=== PATIENT | female | born 2000 | race Caucasian/White ===

== ENCOUNTER 2024-05-11 14:44 | Inpatient (IN) | payer OTHER, SELFPAY ==
[2024-05-11] VITALS (29 sets, daily range): BP systolic 92–114; BP diastolic 42–93; PULSE 97–140; RESP 18–124; TEMP 37.3–39.6; O2SAT 76–97; BMI 20.9; BMI 21.2
--- NOTE | 2024-05-11 15:01 | EKG12_ITS ---
Test Reason : SOB Blood Pressure : */* mmHG Vent. Rate : 132 BPM Atrial Rate : 132 BPM P-R Int : 124 ms QRS Dur : 72 ms QT Int : 282 ms P-R-T Axes : 58 109 -11 degrees QTcB Int : 417 ms Sinus tachycardia Rightward axis T wave abnormality, consider inferior ischemia Abnormal ECG Confirmed by OCTAVIO BRUNSON, SORAYA ([id number]), graphics editor CHRISTINE BUSH ([id number]) on 05/12/2024 8:48:04 AM Referred By: Inna Taylor Confirmed By: SORAYA CUNNINGHAM MD
--- NOTE | 2024-05-11 15:13 | EX.ED.DYSGE1 ---
HPI <MARTÍNEZ Ruiz - Last Filed: 05/11/24 15:57> History of Present Illness Chief Complaint: Shortness of Breath Narrative Narrative: Patient is a 23-year-old female with no significant ankle history, last menstrual cycle was 1 week ago. Patient over the last 8 days has had a cough, fever and chills. Patient did see a family doctor who treated her for more of a viral-like illness. Over the last 2 to 3 days, the patient has been having worsening fatigue, fever has been more increased, patient is more more short of breath. Today, the patient was at a family office, then sent in by secondary to hypoxia. Patient denies any sick contacts. Pay states he has a harsh cough, and feels short of breath. PFSH <MARTÍNEZ Ruiz - Last Filed: 05/11/24 15:57> [facility] Medical History no medical history Home Medications ?Medication ?Instructions ?Recorded ?Last Taken ?Type NK 05/11/24 Unknown History Allergy/AdvReac Type Severity Reaction Status Date / Time No Known Allergies Allergy Verified 05/11/24 14:51 Family History no significant family his Surgical History no surgical history Social History Smoking Status: Never smoker ROS <MARTÍNEZ Ruiz - Last Filed: 05/11/24 15:57> ROS ED ROS Narrative Constitutional: Negative for weight loss. Positive for fever, chills, weakness. Eyes: Negative for vision loss, vision change, double vision ENT: Negative for any sore throat, ear pain, congestion Cardiovascular: Negative for any chest pain, tightness, palpitations Respiratory: Positive for any cough, sputum production, hemoptysis, dyspnea, dyspnea on exertion, orthopnea Gastrointestinal: Negative for any abdominal pain, nausea, vomiting, diarrhea, constipation, blood in stool, blood in vomit : Negative for any urinary frequency, dysuria, retention, blood in urine Muscle skeletal: Negative for any neck pain, back pain. Positive for myalgias Neurological: Negative for any headache, syncope, dizziness Skin: Negative for any rashes, itching, abrasions, lacerations Psychiatric: Negative for any depression, anxiety, stress, suicidal ideation, homicidal ideation Hematologic: Negative for any excessive bruising, easy bleeding EXAM <MARTÍNEZ Ruiz - Last Filed: 05/11/24 15:57> Physical Exam Narrative Exam Narrative: Vital signs reviewed. Patient on my initial evaluation did appear to be ill-appearing. Patient's heart rate was 135, temperature was 103.2, patient was 93% on 5 L nasal cannula. HEET: Head normocephalic atraumatic, TMs clear bilaterally. Posterior pharynx is clear, dry mucous membranes. Nares clear bilaterally. Neck: Supple with no lymphadenopathy or tenderness. No signs of meningismus. Cardiac: Tachycardic rate no murmurs gallops or rubs, equal peripheral pulses bilaterally. Respiratory: Lung sounds diminished at the bases. No chest tenderness. Abdomen: Soft, nontender, nondistended. No abdominal bruit or pulsatile masses. No hepatosplenomegaly Extremities: No peripheral edema, no signs of gross trauma or deformity. Active full range of motion of all extremities. Neuro: Cranial nerves II through XII intact, no focal neurological deficits. Skin: Clean dry and intact with no rash, purpura, petechiae, vesicles or pustules. Skin is warm to the touch Backs/flank: No CVA tenderness, no midline spinal tenderness, no deformity. Psych: Normal mood and affect. No SI, HI or acute psychosis. Const Vital Signs: 05/11/24 14:45 05/11/24 14:45 05/11/24 14:48 Temperature 103.2 F H 103.2 F H Temperature Source Oral Oral Pulse Rate 140 H 135 H Respiratory Rate 22 H 27 H Respiratory Effort Short of Breath Accessory Muscle Use Respiratory Depth Shallow Respiratory Pattern Tachypnea Blood Pressure 107/82 H 107/82 H Blood Pressure Mean 90 90 Pulse Ox 92 76 Oxygen Delivery Method Room Air Nasal Cannula Room Air Oxygen Flow Rate (L/min) 6 05/11/24 14:53 05/11/24 15:06 Temperature Temperature Source Pulse Rate Respiratory Rate Respiratory Effort Respiratory Depth Respiratory Pattern Blood Pressure Blood Pressure Mean Pulse Ox 93 93 Oxygen Delivery Method Nasal Cannula Nasal Cannula Oxygen Flow Rate (L/min) 6 6 <Dr. Jax Orr MD - Last Filed: 05/11/24 15:57> Physical Exam Const Vital Signs: 05/11/24 14:45 05/11/24 14:45 05/11/24 14:48 Temperature 103.2 F H 103.2 F H Temperature Source Oral Oral Pulse Rate 140 H 135 H Respiratory Rate 22 H 27 H Respiratory Effort Short of Breath Accessory Muscle Use Respiratory Depth Shallow Respiratory Pattern Tachypnea Blood Pressure 107/82 H 107/82 H Blood Pressure Mean 90 90 Pulse Ox 92 76 Oxygen Delivery Method Room Air Nasal Cannula Room Air Oxygen Flow Rate (L/min) 6 05/11/24 14:53 05/11/24 15:06 Temperature Temperature Source Pulse Rate Respiratory Rate Respiratory Effort Respiratory Depth Respiratory Pattern Blood Pressure Blood Pressure Mean Pulse Ox 93 93 Oxygen Delivery Method Nasal Cannula Nasal Cannula Oxygen Flow Rate (L/min) 6 6 [facility] <MARTÍNEZ Ruiz - Last Filed: 05/11/24 15:57> [facility] Lab Data Labs: Laboratory Results - last 24 hr 05/11/24 05/11/24 14:30 15:05 WBC 10.6 RBC 4.49 Hgb 12.9 Hct 38.6 MCV 86.0 MCH 28.7 MCHC 33.4 RDW Std Deviation 42.6 RDW Coeff of Nabila 13.5 Plt Count 240 MPV 10.4 Immature Gran % (Auto) 0.800 Neut % (Auto) 79.5 H Lymph % (Auto) 12.6 L Harris % (Auto) 6.8 Eos % (Auto) 0.0 Baso % (Auto) 0.3 Absolute Neuts (auto) 8.4 H Absolute Lymphs (auto) 1.33 Nucleated RBC % 0 PT 13.5 INR 1.0 APTT 36.1 Sodium 133 L Potassium 3.8 Chloride 100 Carbon Dioxide 25.0 Anion Gap 8 BUN 3 L Creatinine 0.75 Estim Creat Clear Calc 113.70 Est GFR (MDRD) Af Amer 125 Est GFR (MDRD) Non-Af 103 BUN/Creatinine Ratio 4.0 L Glucose 111 H Lactic Acid 1.4 Calcium 9.0 Total Bilirubin 0.50 AST 36 ALT 19 Alkaline Phosphatase 68 Total Protein 7.9 Albumin 3.1 L Globulin 4.8 H Albumin/Globulin Ratio 0.6 L EKG Sinus tachycardia: Attestation: I personally reviewed and interpreted this EKG as follows: Comments: Sinus tachycardia with a rate of 132 bpm, AK interval 124 ms, QRS duration 72 ms, no acute ST elevation, no acute infarct noted. Treatment and Re-Evaluation :: Differential diagnosis includes however is not limited to: Community-acquired pneumonia, COVID-19, influenza, RSV, PE, other respiratory virus Patient on my initial evaluation did appear ill-appearing. Patient will receive a full septic workup. Patient was tachycardic, tachypneic, febrile. Patient's pulse oxygenation dropped to 88% when I switched her from different nasal cannula. She is on currently 5 L. Patient received a 1 view chest x-ray, breathing treatments, laboratory values including 2 sets of blood cultures. Patient will receive a respiratory viral swab for COVID-19 influenza RSV. After my initial evaluation, I do believe the patient will need admitted to the hospital. 2 L of normal saline will be ordered. IV Toradol, oral Tylenol will be given. All radiologic examinations were read, reviewed by the emergency department attending. From these reads, a plan of care will be put in place. Will need to be reevaluated after breathing treatments. <Dr. Jax Orr MD - Last Filed: 05/11/24 15:57> [facility] Narrative Medical decision making narrative: I have personally performed a face to face assessment of the patient and have reviewed the AMISHA Note. I performed a substantive portion of the visit including all aspects of the following. My heredia findings include: History is [23-year-old female URI symptoms for a week. Progressively increasing shortness of breath. Previously seen in urgent care last week. Had a negative COVID and flu test. Was treated with Tamiflu for influenza and knows she had a negative test. Had no chest x-ray done. She has progressively felt worse. Denies chest pain or hemoptysis. No history of DVT or PE. No leg pain or swelling.] Exam is [23-year-old female vital signs show a fever of 103.2 and a heart rate of 140. H EENT exam pupils round reactive light. Dry mucous members. Neck nontender. No JVD. No lymphadenopathy. Lungs rhonchi left base. Decreased breath sounds left base. Tachycardic and tachypneic. Heart tachycardia 140 no murmur. Chest wall ribs nontender. Abdomen soft nontender. Moving all 4 extremities. Nontender no edema. Neurologically she is awake and alert no focal motor deficits. Skin no rashes. Back nontender.] Medical Decision Making [23-year-old female left lower lobe pneumonia. Started on Rocephin and Zithromax. Septic workup. Patient be admitted to PCU to the hospitalist. Repeat exam at 3:55 PM. She started to show some improvement. She was improved with the aerosols also. I discussed test results with both her and her . They are comfortable with the plan.] Other additions or changes: [None] History & Record Review Discussion w/independent historian: Patient and Significant other Lab Data Attestation: I reviewed the patient's lab results. Lab results narrative: CBC shows white count of 10. H&H 12.9 and 38. Platelets 240. Electrolytes show sodium 133. Gap 8. BUN of 3 creatinine 0.75. Glucose 111. Liver enzymes normal. Lactic acid normal at 1.4. Chest x-ray shows a left lower lobe pneumonia. Labs: Laboratory Results - last 24 hr 05/11/24 05/11/24 14:30 15:05 WBC 10.6 RBC 4.49 Hgb 12.9 Hct 38.6 MCV 86.0 MCH 28.7 MCHC 33.4 RDW Std Deviation 42.6 RDW Coeff of Nabila 13.5 Plt Count 240 MPV 10.4 Immature Gran % (Auto) 0.800 Neut % (Auto) 79.5 H Lymph % (Auto) 12.6 L Harris % (Auto) 6.8 Eos % (Auto) 0.0 Baso % (Auto) 0.3 Absolute Neuts (auto) 8.4 H Absolute Lymphs (auto) 1.33 Nucleated RBC % 0 PT 13.5 INR 1.0 APTT 36.1 Sodium 133 L Potassium 3.8 Chloride 100 Carbon Dioxide 25.0 Anion Gap 8 BUN 3 L Creatinine 0.75 Estim Creat Clear Calc 113.70 Est GFR (MDRD) Af Amer 125 Est GFR (MDRD) Non-Af 103 BUN/Creatinine Ratio 4.0 L Glucose 111 H Lactic Acid 1.4 Calcium 9.0 Total Bilirubin 0.50 AST 36 ALT 19 Alkaline Phosphatase 68 Total Protein 7.9 Albumin 3.1 L Globulin 4.8 H Albumin/Globulin Ratio 0.6 L Radiography Chest X-Ray - ED: 1 View, Read by ED Physician, Heart, Mediastinum, Bony Structures and Left Infiltrate (Left lower lobe pneumonia.) Diagnostic Testing: Chest x-ray, portable, single view interpreted by myself shows whiteout of the left lower lobe consistent with a left lower lobe pneumonia. Normal cardiac silhouette. Normal right lung ibarra. Discharge Plan Triage Chief Complaint: Shortness of Breath ED Midlevel Provider: Kit Araiza ED Provider: Jax Orr Dx/Rx/DC Orders Prescriptions: No Action NK Primary Care Provider: NOT,DEFINED Referrals: NOT,DEFINED [Primary Care Provider] - Print Language: Bulgarian
[2024-05-11] MEDS: 0.9% Normal Saline (1000mL) 1,000 ML 999 ML IV ×2 (15:18→15:58)
[2024-05-11] MEDS: Albuterol 2.5 MG/3 ML VIAL.NEB. INHALATION (15:18)
[2024-05-11] MEDS: Ketorolac 15 MG/ML Vial IV (15:18)
[2024-05-11] MEDS: Acetaminophen 500 MG Tablet 1000 MG PO (15:18)
[2024-05-11] MEDS: Ipratropium/Albuterol Sulfate 3 ML AMPUL.NEB INHALATION (15:19)
[2024-05-11 15:23] LABS: Absolute Lymphocyte Count 1.33 X10^3/uL (0.83-4.51); Absolute Neutrophil Count 8.4 X10^3/uL (2.0-7.7); Basophil# 0.03 X10^3/uL; Basophil% 0.3 % (0-1); Hematocrit 38.6 % (37-47); Hemoglobin 12.9 g/dL (12.0-15.0); Lymphocyte # 1.33 X10^3/ul (0.83-4.51); Lymphocyte % 12.6 % (19-41); Mean Corp Hgb Conc 33.4 g/dL (32-36); Mean Corpuscular Hgb 28.7 pg (27.0-32.0); Mean Platelet Vol. 10.4 fl (6.2-12.0); Monocyte# 0.72 X10^3/uL; Monocyte% 6.8 % (0-10); NRBC Flagged by Analyzer 0 % (0-5); Neutrophil # 8.43 X10^3/uL (2.7-7.7); Neutrophil % 79.5 % (47-70); Platelet Count 240 K/mm3 (150-450); RBC Distribution Width CV 13.5 % (11.6-14.6); RBC Distribution Width SD 42.6 fl (35.1-43.9); Red Blood Count 4.49 M/mm3 (4.2-5.4); White Blood Count 10.6 K/mm3 (4.4-11.0)
[2024-05-11 15:28] LABS: Prothrombin Time (Protime)PT. 13.5 SECONDS (11.7-14.9)
[2024-05-11 15:29] LABS: Partial Thromboplast Time 36.1 Seconds (24.1-36.2)
[2024-05-11 15:37] LABS: ALB/GLOB Ratio 0.6 RATIO (0.9-2.4); AST(SGOT) 36 U/L (15-37); Alanine Aminotransfer ALT/SGPT 19 U/L (13-56); Albumin, Serum 3.1 g/dL (3.2-5.0); Alkaline Phosphatase 68 U/L (45-117); Anion Gap 8 (5-15); BUN 3 mg/dL (7-18); Chloride 100 mmol/L (98-107); Creatinine, Serum 0.75 mg/dL (0.55-1.02); EST Glomerular Filtration Rate 103 mL/min (>60); Est Glom Filt Rate - Afr Amer 125 mL/min (>60); Globulin 4.8 g/dL (2.2-4.2); Glucose 111 mg/dL (74-106); Potassium 3.8 mmol/L (3.5-5.1); Protein, Total 7.9 g/dL (6.4-8.2); Sodium Level 133 mmol/L (136-145)
--- NOTE | 2024-05-11 15:40 | RAD_ITS ---
PROCEDURE: CHEST 1 VIEW (PORTABLE) REASON FOR EXAM: Cough. TECHNIQUE: One view. COMPARISON: None. FINDINGS: The cardiothymic contour is normal. Left mid lung and basilar consolidation suspicious for infection. Probable small left pleural effusion. The bones are unremarkable. No radiopaque foreign body is identified. RAD/Chest 1 View (Portable) IMPRESSION: Left lung consolidation. Probable small left pleural effusion. Reading Location: [id number]
[2024-05-11 15:52] LABS: Lactic Acid 1.4 mmol/L (0.4-1.9)
[2024-05-11] MEDS: Ceftriaxone 1 GM/50 ML BAG IV (16:02)
[2024-05-11] MEDS: Azithromycin 500 MG in 0.9% Normal Saline (250mL Bag) 250 ML 255 MG IV (16:53)
--- NOTE | 2024-05-11 16:56 | HP.PCM.HOS_ITS ---
HPI - General General Date of Service: 05/11/24 Chief Complaint: SOB HPI Narrative LIZA SMITH, is a 23-year-old female with no significant past medical history presented [facility] ED 05/11/2024 with 1 week of cough, fever, chills. She saw family doctor last week who treated her more of a viral-like illness but over the past 2 to 3 days she has had worsening fatigue and more short of breath. Today she went to her family physician office and was sent in due to hypoxia. In the ED patient febrile with a temperature of 103.2, tachycardic with heart rate 130s with a blood pressure of 107/82, respiratory rate 27 and 76% on room air which improved to mid 90s on 6 L. X-ray showed left-sided pneumonia patient given broad-spectrum antibiotics and hospitalist contacted for admission. Patient evaluated at bedside, she is still tachypneic and tachycardic but reports that she is beginning to feel better. History as above, does have productive cough and has been having fevers up to 104 at home. No chest pain, little bit of headache, no bowel or bladder changes. PFSH Medical History no medical history Home Medications ?Medication ?Instructions ?Recorded ?Last Taken ?Type NK 05/11/24 Unknown History Allergy/AdvReac Type Severity Reaction Status Date / Time No Known Allergies Allergy Verified 05/11/24 14:51 Family History no significant family his Surgical History no surgical history Social History Smoking Status: Never smoker ROS ROS Narrative General: Fevers at home HENT: Little bit of a headache EYES: Denies changes in vision Resp: Productive cough with shortness of breath Cardiac: Denies chest pain GI: Denies abdominal pain, denies changes in bowel, denies nausea/vomiting : Denies changes in urination Extremity: Denies swelling MSK: Denies weakness Neuro: Denies any numbness/tingling Heme: Denies any bleeding or bruising Skin: Denies rashes Psychiatric: No complaints voiced Vital Signs Vital Signs Vital Signs: 05/11/24 14:45 05/11/24 14:45 05/11/24 14:48 Temperature 103.2 F H 103.2 F H Temperature Source Oral Oral Pulse Rate 140 H 135 H Respiratory Rate 22 H 27 H Respiratory Effort Short of Breath Accessory Muscle Use Respiratory Depth Shallow Respiratory Pattern Tachypnea Blood Pressure 107/82 H 107/82 H Blood Pressure Mean 90 90 Pulse Ox 92 76 Oxygen Delivery Method Room Air Nasal Cannula Room Air Oxygen Flow Rate (L/min) 6 05/11/24 14:53 05/11/24 14:54 05/11/24 15:00 Temperature Temperature Source Pulse Rate 131 H 135 H Respiratory Rate 20 H 23 H Respiratory Effort Respiratory Depth Respiratory Pattern Blood Pressure 110/74 Blood Pressure Mean 87 Pulse Ox 93 95 92 Oxygen Delivery Method Nasal Cannula Oxygen Flow Rate (L/min) 6 05/11/24 15:06 05/11/24 15:19 05/11/24 15:30 Temperature Temperature Source Pulse Rate 128 H 130 H Respiratory Rate 20 H 27 H Respiratory Effort Respiratory Depth Respiratory Pattern Normal Blood Pressure 100/55 L Blood Pressure Mean 69 Pulse Ox 93 96 Oxygen Delivery Method Nasal Cannula Oxygen Flow Rate (L/min) 6 05/11/24 15:45 05/11/24 15:48 05/11/24 16:00 Temperature 102.1 F H Temperature Source Oral Pulse Rate 140 H 129 H 133 H Respiratory Rate 23 H 27 H 28 H Respiratory Effort Respiratory Depth Respiratory Pattern Blood Pressure 101/42 L 101/45 L 100/45 L Blood Pressure Mean 59 63 61 Pulse Ox 94 93 91 Oxygen Delivery Method Nasal Cannula Nasal Cannula Nasal Cannula Oxygen Flow Rate (L/min) 6 6 6 05/11/24 16:54 05/11/24 16:55 Temperature 102.1 F H 102.1 F H Temperature Source Oral Pulse Rate 124 H 122 H Respiratory Rate 21 H 124 H Respiratory Effort Respiratory Depth Respiratory Pattern Blood Pressure 99/66 99/66 Blood Pressure Mean 77 77 Pulse Ox 92 92 Oxygen Delivery Method Nasal Cannula Oxygen Flow Rate (L/min) 6 Weight Weight: 60.7 kg Body Mass Index (BMI) 20.9 Physical Exam Narrative General: Alert, oriented HEENT: Atraumatic, normocephalic Eyes: Anicteric, normal conjunctiva, extraocular movements grossly intact Neck: Supple Respiratory: Patient tachypneic with increased respiratory effort, no wheezes, somewhat diminished at left base Cardiovascular: Sinus tachycardia GI: Soft, nontender, nondistended Extremities: No edema Musculoskeletal: Moving all extremities Neuro: No overt focal neurological deficits Skin: No rashes appreciated Psych: Cooperative Results Lab / Micro Data 05/11/24 14:30 05/11/24 14:30 Labs: Laboratory Results - last 24 hr 05/11/24 14:30: WBC 10.6, RBC 4.49, Hgb 12.9, Hct 38.6, MCV 86.0, MCH 28.7, MCHC 33.4, RDW Std Deviation 42.6, RDW Coeff of Nabila 13.5, Plt Count 240, MPV 10.4, Immature Gran % (Auto) 0.800, Neut % (Auto) 79.5 H, Lymph % (Auto) 12.6 L, [place] % (Auto) 6.8, Eos % (Auto) 0.0, Baso % (Auto) 0.3, Absolute Neuts (auto) 8.4 H, Absolute Lymphs (auto) 1.33, Nucleated RBC % 0, PT 13.5, INR 1.0, APTT 36.1, S odium 133 L, Potassium 3.8, Chloride 100, Carbon Dioxide 25.0, Anion Gap 8, BUN 3 L, Creatinine 0.75, Estim Creat Clear Calc 113.70, Est GFR (MDRD) Af Amer 125, Est GFR (MDRD) Non-Af 103, BUN/Creatinine Ratio 4.0 L, Glucose 111 H, Calcium 9.0, Total Bilirubin 0.50, AST 36, ALT 19, Alkaline Phosphatase 68, Total Protein 7.9, Albumin 3.1 L, Globulin 4.8 H, Albumin/Globulin Ratio 0.6 L 05/11/24 15:05: Lactic Acid 1.4 Micro: Microbiology 05/11/24 15:15 Mucosa - Nose SARS-CoV-2, Influenza & RSV (PCR) - Final Imaging Radiology Impression Chest X-Ray 05/11/24 15:40 IMPRESSION: Left lung consolidation. Probable small left pleural effusion. Reading Location: [facility] Assessment & Plan Assessment/Plan (1) Pneumonia: PLAN: Plan # Hypoxia secondary to community-acquired pneumonia -Imaging: Chest x-ray with left-sided pneumonia -DuoNebs and as needed albuterol -Sputum culture, COVID negative, respiratory panel ordered -Urine antigens -Mucinex, I/S -Rocephin and azithromycin #DVT ppx: Lovenox subcu Inna Taylor MD Charges/Coding Visit Charges Inpatient E&M: 87840 Init Hosp L1
[2024-05-11] MEDS: Ondansetron 4 MG/2 ML Vial IV (17:21)
--- NOTE | 2024-05-11 18:14 | CASEMGMT ---
Care Management Face to Face with patient for initial transition planning/care coordination assessment in the ED. This instructional writer introduced self and role at [facility]. Patient alert and oriented. Patient willing to participate in assessment and is able to answer all questions appropriately. Patient's , Jae, bedside and permission given to speak in front of Jae. Care providers, pharmacy, and demographics verified. Admitting Diagnosis: pneumonia Other diagnosis history: no significant medical history PCP: Gaetano Uribe Specialists: none Preferred Pharmacy: [facility] in [place] Insurance: self pay; Taoist Aide (patient stated possible desire to speak with Taoist Liaison) Prescription Benefit: N/A Living Will/HPOA: none; denied needing information. LNOK: , Jae Living Arrangements: lives with in a 2-story home with basement. 2 steps to enter. Full flights of stairs to get to bedroom/bathroom upstairs as well as laundry in the basement. Independent at baseline with all ADLs Transportation: patient uses horse and buggy or bikes to get around; does have access to drivers as needed. Patient reported using a milk pickup driver to go to urgent care today prior to EMS being called to bring patient to the ED. DME: none HHC: none SNF/Rehab: none Community Resources: none Patient goals: Patient wishes to discharge home, denies need for home health care at this time. Patient states she has no further needs or concerns at this time, though patient did state possible desire to speak with Taoist Liaison while admitted. Disposition Plan: admission to acute; RN CM/SW to follow for discharge planning needs that may arise. Karin Morgan, PLATE GL[employer] INSTALLER HELPER, BIT SETTER
[2024-05-11] MEDS: 0.9% Normal Saline (1000mL) 1,000 ML 100 ML IV (21:49)
[2024-05-11] MEDS: Acetaminophen 325 MG Tablet 650 MG PO (21:56)
[2024-05-12] VITALS (33 sets, daily range): BP systolic 82–122; BP diastolic 52–80; PULSE 81–123; RESP 18–24; TEMP 37–39.4; O2SAT 90–99
[2024-05-12] MEDS: guaiFENesin 1,200 MG Tablet 1200 MG PO ×2 (00:16→09:36)
[2024-05-12] MEDS: Ketorolac 30 MG/ML Syringe IV ×2 (02:17→10:46)
[2024-05-12 07:14] LABS: Absolute Lymphocyte Count 1.35 X10^3/uL (0.83-4.51); Absolute Neutrophil Count 6.8 X10^3/uL (2.0-7.7); Basophil# 0.02 X10^3/uL; Basophil% 0.2 % (0-1); Hematocrit 31.9 % (37-47); Hemoglobin 10.4 g/dL (12.0-15.0); Lymphocyte # 1.35 X10^3/ul (0.83-4.51); Lymphocyte % 15.5 % (19-41); Mean Corp Hgb Conc 32.6 g/dL (32-36); Mean Corpuscular Hgb 28.7 pg (27.0-32.0); Mean Corpuscular Volume 88.1 fL (81-99); Mean Platelet Vol. 10.5 fl (6.2-12.0); Monocyte% 5.7 % (0-10); NRBC Flagged by Analyzer 0 % (0-5); Neutrophil # 6.75 X10^3/uL (2.7-7.7); Neutrophil % 77.7 % (47-70); Platelet Count 196 K/mm3 (150-450); RBC Distribution Width SD 45.6 fl (35.1-43.9); Red Blood Count 3.62 M/mm3 (4.2-5.4); White Blood Count 8.7 K/mm3 (4.4-11.0)
[2024-05-12 07:44] LABS: Anion Gap 5 (5-15); BUN 4 mg/dL (7-18); BUN/Creat Ratio 7.7 RATIO (10-20); Calcium,Total 7.8 mg/dL (8.5-10.1); Chloride 111 mmol/L (98-107); Creatinine, Serum 0.52 mg/dL (0.55-1.02); EST Glomerular Filtration Rate 157 mL/min (>60); Est Glom Filt Rate - Afr Amer 191 mL/min (>60); Estimated Creatinine Clearance 165.88 ml/min; Glucose 97 mg/dL (74-106); Potassium 4.2 mmol/L (3.5-5.1); Sodium Level 138 mmol/L (136-145)
[2024-05-12] MEDS: Enoxaparin 40 MG/0.4 ML Syringe SC (09:36)
[2024-05-12] MEDS: Acetaminophen 325 MG Tablet 650 MG PO ×3 (09:36→21:08)
[2024-05-12] MEDS: Ceftriaxone 2 GM in 0.9% Normal Saline (50mL MB+) 50 ML IV (09:43)
[2024-05-12] MEDS: Azithromycin 500 MG in 0.9% Normal Saline (250mL Bag) 250 ML 250 MG IV (11:25)
--- NOTE | 2024-05-12 13:48 | PN_ITS ---
Subjective Subjective Patient seen and examined. Her was by her bedside. She complained of shortness of breath. She is on 10 L of oxygen. She was coughing but was not productive. She denied any chest pain, palpitations, dizziness, nausea vomiting or any other symptoms. Review of systems otherwise negative. Objective Data Objective Data Vital Signs: Vital Signs Temp Pulse Resp BP Pulse Ox O2 Del Method O2 Flow Rate 99.6 F H 107 H 24 H 118/53 L 92 Nasal Cannula 4 05/12/24 11:33 05/12/24 11:00 05/12/24 09:29 05/12/24 11:00 05/12/24 11:00 05/12/24 12:46 05/12/24 12:46 Oxygen Flow Rate (L/min) 4 Oxygen Delivery Method Nasal Cannula Weight: 135 lb 5.821 oz Body Mass Index (BMI) 21.2 Intake & Output: Intake and Output for Last 24 Hours 05/10/24 05/11/24 05/12/24 23:59 23:59 23:59 Intake Total 2305 / 2305 1305 / 1305 Output Total 200 / 200 Balance 2305 / 2305 1105 / 1105 Lab / Micro Data 05/12/24 06:30 05/12/24 06:30 Labs: Laboratory Results - last 24 hr 05/11/24 14:30: WBC 10.6, RBC 4.49, Hgb 12.9, Hct 38.6, MCV 86.0, MCH 28.7, MCHC 33.4, RDW Std Deviation 42.6, RDW Coeff of Nabila 13.5, Plt Count 240, MPV 10.4, Immature Gran % (Auto) 0.800, Neut % (Auto) 79.5 H, Lymph % (Auto) 12.6 L, [place] % (Auto) 6.8, Eos % (Auto) 0.0, Baso % (Auto) 0.3, Absolute Neuts (auto) 8.4 H, Absolute Lymphs (auto) 1.33, Nucleated RBC % 0, PT 13.5, INR 1.0, APTT 36.1, S odium 133 L, Potassium 3.8, Chloride 100, Carbon Dioxide 25.0, Anion Gap 8, BUN 3 L, Creatinine 0.75, Estim Creat Clear Calc 113.70, Est GFR (MDRD) Af Amer 125, Est GFR (MDRD) Non-Af 103, BUN/Creatinine Ratio 4.0 L, Glucose 111 H, Calcium 9.0, Total Bilirubin 0.50, AST 36, ALT 19, Alkaline Phosphatase 68, Total Protein 7.9, Albumin 3.1 L, Globulin 4.8 H, Albumin/Globulin Ratio 0.6 L 05/11/24 15:05: Lactic Acid 1.4 05/12/24 06:30: WBC 8.7, RBC 3.62 L, Hgb 10.4 L, Hct 31.9 L, MCV 88.1, MCH 28.7, MCHC 32.6, RDW Std Deviation 45.6 H, RDW Coeff of Nabila 14.0, Plt Count 196, MPV 10.5, Immature Gran % (Auto) 0.900, Neut % (Auto) 77.7 H, Lymph % (Auto) 15.5 L, [place] % (Auto) 5.7, Eos % (Auto) 0.0, Baso % (Auto) 0.2, Absolute Neuts (auto) 6.8, Absolute Lymphs (auto) 1.35, Nucleated RBC % 0, Sodium 138, Potassium 4.2, Chloride 111 H, Carbon Dioxide 23.0, Anion Gap 5, BUN 4 L, Creatinine 0.52 L, Estim Creat Clear Calc 165.88, Est GFR (MDRD) Af Amer 191, Est GFR (MDRD) Non-Af 157, BUN/Creatinine Ratio 7.7 L, Glucose 97, Calcium 7.8 L Micro: Microbiology 05/12/24 02:24 Urine, Random Legionella Antigen - Final 05/12/24 02:24 Urine, Random Streptococcus pneumoniae Antigen (M - Final 05/11/24 22:45 Mucosa - Nasopharyngeal Respiratory Panel (PCR) - Final 05/11/24 15:15 Mucosa - Nose SARS-CoV-2, Influenza & RSV (PCR) - Final Radiography Diagnostic Testing: Radiology Impression Chest X-Ray 05/11/24 15:40 IMPRESSION: Left lung consolidation. Probable small left pleural effusion. Reading Location: [facility] Physical Exam Const alert, oriented x3 and no apparent distress Constitutional Narrative: frail General Appearance: cooperative HEENT normocephalic and head/scalp atraumatic HEENT Narrative: dry oral mucosa Eyes PERRL and EOMs intact bilaterally Neck no lymphadenopathy and supple Lymph Lymphatic: no lymphadenopathy noted and no lymphedema noted Resp Resp Narrative: Diminished breath sounds bibasilarly. Has bronchial breath sounds in the left lower lung base. Was on 10 L of oxygen at time of my review this morning. Cardio regular rate, regular rhythm, S1 normal heart sound, S2 normal heart sound and no murmurs GI normal to inspection, nondistended, normoactive bowel sounds, soft to palpation, non-tender and non-distended Extremity normal capillary refill, no clubbing, cyanosis or edema and no calf tenderness General Extremity: no tenderness to palpation of joints or extremities Neuro CN's II-XII intact bilaterally, no focal motor deficits and no sensory deficits noted Motor Exam: strength 5/5 throughout and general weakness Psych thought process normal and cooperative Appearance: appropriate Assessment & Plan Assessment/Plan (1) Pneumonia: PLAN: Plan #Acute hypoxic respiratory failure due to left lower lobe pneumonia\ * Patient admits to having had some upper respiratory viral illness. August She was not improving as well as getting to the ED. Chest imaging showed a left lower lobe consolidation and probable small left pleural effusion. * Currently on IV antibiotics-ceftriaxone and azithromycin, and 10 L of oxygen. She was weaned down to 4 L of oxygen later today. * breathing treatment with bronchodilators * titrate oxygen to maintain sats >90% * Hold off on pulmonology consult for now as she is down to 4 L of oxygen. * Urine for strep and Legionella negative. Respiratory panel negative and blood cultures pending. * #Left lower lobe pneumonia: As above DVT prophylaxis: lovenox * Charges/Coding Visit Charges Inpatient E&M: 70076 Subs Hosp L3
[2024-05-12] MEDS: guaiFENesin Dm 10 ML UDC PO ×2 (14:39→21:07)
[2024-05-12] MEDS: Sodium Chloride 0.65% 1 SPRAY SPRAY.BTL 2 SPRAY NASAL (14:41)
[2024-05-12] MEDS: 0.9% Saline Lock 10 ML Syringe IV (21:08)
[2024-05-13] VITALS (15 sets, daily range): BP systolic 107–124; BP diastolic 65–85; PULSE 64–113; RESP 16–23; TEMP 36.3–38.1; O2SAT 88–99
[2024-05-13] MEDS: 0.9% Saline Lock 10 ML Syringe IV ×3 (02:19→22:27)
[2024-05-13] MEDS: Ketorolac 30 MG/ML Syringe IV ×2 (02:19→18:13)
[2024-05-13] MEDS: Acetaminophen 325 MG Tablet 650 MG PO ×4 (03:09→22:26)
[2024-05-13 06:46] LABS: Absolute Lymphocyte Count 2.01 X10^3/uL (0.83-4.51); Basophil# 0.03 X10^3/uL; Basophil% 0.4 % (0-1); Eosinophil# 0.04 X10^3/uL; Eosinophils% 0.5 % (0-5); Hematocrit 33.8 % (37-47); Hemoglobin 11.1 g/dL (12.0-15.0); Lymphocyte # 2.01 X10^3/ul (0.83-4.51); Lymphocyte % 25.9 % (19-41); Mean Corp Hgb Conc 32.8 g/dL (32-36); Mean Corpuscular Hgb 29.4 pg (27.0-32.0); Mean Corpuscular Volume 89.7 fL (81-99); Monocyte# 0.58 X10^3/uL; Monocyte% 7.5 % (0-10); NRBC Flagged by Analyzer 0 % (0-5); Neutrophil # 4.95 X10^3/uL (2.7-7.7); Neutrophil % 63.6 % (47-70); Platelet Count 256 K/mm3 (150-450); RBC Distribution Width CV 14.1 % (11.6-14.6); RBC Distribution Width SD 45.8 fl (35.1-43.9); Red Blood Count 3.77 M/mm3 (4.2-5.4); White Blood Count 7.8 K/mm3 (4.4-11.0)
[2024-05-13 07:05] LABS: Anion Gap 4 (5-15); BUN 4 mg/dL (7-18); BUN/Creat Ratio 6.8 RATIO (10-20); Calcium,Total 8.7 mg/dL (8.5-10.1); Chloride 110 mmol/L (98-107); Creatinine, Serum 0.59 mg/dL (0.55-1.02); EST Glomerular Filtration Rate 137 mL/min (>60); Est Glom Filt Rate - Afr Amer 166 mL/min (>60); Glucose 94 mg/dL (74-106); Potassium 4.3 mmol/L (3.5-5.1); Sodium Level 141 mmol/L (136-145)
[2024-05-13] MEDS: guaiFENesin Dm 10 ML UDC PO ×3 (09:35→22:26)
[2024-05-13] MEDS: guaiFENesin 1,200 MG Tablet 1200 MG PO (09:35)
[2024-05-13] MEDS: Ceftriaxone 2 GM in 0.9% Normal Saline (50mL MB+) 50 ML IV (09:55)
--- NOTE | 2024-05-13 10:58 | PN_ITS ---
Subjective Subjective Patient seen and examined. She said she felt much better today. She is down to 3L of oxgyen. She is coughing, but it is dry. She denies any fever or chills. Review of systems is otherwise negative. Objective Data Objective Data Vital Signs: Vital Signs Temp Pulse Resp BP Pulse Ox O2 Del Method O2 Flow Rate 97.3 F L 64 16 107/70 92 Nasal Cannula 3 05/13/24 06:10 05/13/24 06:10 05/13/24 06:14 05/13/24 06:10 05/13/24 06:14 05/13/24 06:15 05/13/24 06:15 Oxygen Flow Rate (L/min) 3 Oxygen Delivery Method Nasal Cannula Weight: 135 lb 5.821 oz Body Mass Index (BMI) 21.2 Intake & Output: Intake and Output for Last 24 Hours 05/11/24 05/12/24 05/13/24 23:59 23:59 23:59 Intake Total 2305 / 2305 2325 / 2325 Output Total 200 / 200 Balance 2305 / 2305 2125 / 2125 Lab / Micro Data 05/13/24 06:17 05/13/24 06:17 Labs: Laboratory Results - last 24 hr 05/13/24 06:17: WBC 7.8, RBC 3.77 L, Hgb 11.1 L, Hct 33.8 L, MCV 89.7, MCH 29.4, MCHC 32.8, RDW Std Deviation 45.8 H, RDW Coeff of Nabila 14.1, Plt Count 256, MPV 10.0, Immature Gran % (Auto) 2.100 H, Neut % (Auto) 63.6, Lymph % (Auto) 25.9, [place] % (Auto) 7.5, Eos % (Auto) 0.5, Baso % (Auto) 0.4, Absolute Neuts (auto) 5.0, Absolute Lymphs (auto) 2.01, Nucleated RBC % 0, Sodium 141, Potassium 4.3, Chloride 110 H, Carbon Dioxide 26.0, Anion Gap 4 L, BUN 4 L, Creatinine 0.59, Estim Creat Clear Calc 146.20, Est GFR (MDRD) Af Amer 166, Est GFR (MDRD) Non-Af 137, BUN/Creatinine Ratio 6.8 L, Glucose 94, Calcium 8.7 Micro: Microbiology 05/12/24 02:24 Urine, Random Legionella Antigen - Final 05/12/24 02:24 Urine, Random Streptococcus pneumoniae Antigen (M - Final 05/11/24 22:45 Mucosa - Nasopharyngeal Respiratory Panel (PCR) - Final 05/11/24 15:15 Mucosa - Nose SARS-CoV-2, Influenza & RSV (PCR) - Final Physical Exam Const alert, oriented x3 and no apparent distress Constitutional Narrative: frail General Appearance: cooperative HEENT normocephalic and head/scalp atraumatic Eyes PERRL and EOMs intact bilaterally Neck no lymphadenopathy and supple Lymph Lymphatic: no lymphadenopathy noted and no lymphedema noted Resp Resp Narrative: Diminished breath sounds bibasilarly. Has bronchial breath sounds in the left lower lung base. Now has a few crackles in left lower lung ibarra. Cardio regular rate, regular rhythm, S1 normal heart sound, S2 normal heart sound and no murmurs GI normal to inspection, nondistended, normoactive bowel sounds, soft to palpation, non-tender and non-distended Extremity normal capillary refill, no clubbing, cyanosis or edema and no calf tenderness General Extremity: no tenderness to palpation of joints or extremities Neuro CN's II-XII intact bilaterally, no focal motor deficits and no sensory deficits noted Motor Exam: strength 5/5 throughout and general weakness Psych thought process normal and cooperative Appearance: appropriate Assessment & Plan Assessment/Plan (1) Pneumonia: PLAN: Plan #Acute hypoxic respiratory failure due to left lower lobe pneumonia\ * now feeling much better. On 3L of oxygen by nasal canula * Chest imaging showed a left lower lobe consolidation and probable small left pleural effusion. * on IV ceftriaxone and azithroycin. Now down to 3L of oxygen by nasal canula * breathing treatment with bronchodilators. Titrate oxygen to maintain sats >90% * Urine for strep and Legionella negative. Respiratory panel negative and blood cultures pending. * #Left lower lobe pneumonia: As above DVT prophylaxis: lovenox * Charges/Coding Visit Charges Inpatient E&M: 80586 Subs Hosp L2
[2024-05-13] MEDS: Azithromycin 500 MG in 0.9% Normal Saline (250mL Bag) 250 ML 250 MG IV (11:30)
[2024-05-13] MEDS: guaiFENesin 600 MG Tablet PO (22:26)
[2024-05-14] VITALS (10 sets, daily range): BP systolic 111–127; BP diastolic 75–78; PULSE 57–104; RESP 16–20; TEMP 36.3–37.1; O2SAT 91–98
[2024-05-14] MEDS: Ketorolac 30 MG/ML Syringe IV (03:36)
[2024-05-14] MEDS: 0.9% Saline Lock 10 ML Syringe IV (03:36)
[2024-05-14 05:26] LABS: Absolute Lymphocyte Count 1.97 X10^3/uL (0.83-4.51); Absolute Neutrophil Count 2.8 X10^3/uL (2.0-7.7); Basophil# 0.02 X10^3/uL; Basophil% 0.4 % (0-1); Eosinophil# 0.11 X10^3/uL; Hematocrit 34.1 % (37-47); Hemoglobin 11.2 g/dL (12.0-15.0); Lymphocyte # 1.97 X10^3/ul (0.83-4.51); Mean Corp Hgb Conc 32.8 g/dL (32-36); Mean Corpuscular Hgb 29.2 pg (27.0-32.0); Mean Platelet Vol. 9.9 fl (6.2-12.0); Monocyte# 0.43 X10^3/uL; Monocyte% 7.9 % (0-10); NRBC Flagged by Analyzer 0 % (0-5); Neutrophil # 2.81 X10^3/uL (2.7-7.7); Neutrophil % 51.3 % (47-70); Platelet Count 334 K/mm3 (150-450); RBC Distribution Width SD 45.6 fl (35.1-43.9); Red Blood Count 3.83 M/mm3 (4.2-5.4); White Blood Count 5.5 K/mm3 (4.4-11.0)
[2024-05-14 06:23] LABS: Anion Gap 5 (5-15); BUN 5 mg/dL (7-18); BUN/Creat Ratio 9.5 RATIO (10-20); Calcium,Total 8.7 mg/dL (8.5-10.1); Chloride 111 mmol/L (98-107); Creatinine, Serum 0.53 mg/dL (0.55-1.02); EST Glomerular Filtration Rate 155 mL/min (>60); Est Glom Filt Rate - Afr Amer 187 mL/min (>60); Estimated Creatinine Clearance 162.75 ml/min; Glucose 89 mg/dL (74-106); Potassium 3.8 mmol/L (3.5-5.1); Sodium Level 141 mmol/L (136-145)
[2024-05-14] MEDS: guaiFENesin 600 MG Tablet PO (10:07)
[2024-05-14] MEDS: Azithromycin 500 MG in 0.9% Normal Saline (250mL Bag) 250 ML 250 MG IV (10:07)
[2024-05-14] MEDS: Ceftriaxone 2 GM in 0.9% Normal Saline (50mL MB+) 50 ML IV (11:56)
--- NOTE | 2024-05-14 13:55 | DCINST_ITS ---
Discharge Instructions Diet Discharge Diet: No restrictions DC O2, CPAP, BIPAP needs RN Home O2 Qualification: Home O2 Qualification: Is the patient on home oxygen No 05/14/24 12:17 Home O2 Qualification: AT REST 1- Pulse Ox at rest 94 05/14/24 12:17 Home O2 Qualification: WITH AMBULATION 1- Pulse Ox with ambulation 91 05/14/24 12:17 1- Oxygen Flow Rate with 0 05/14/24 12:17 ambulation Home O2 Discharge instructions: No Dressing / Incision Discharge Activity: Return to Normal Activity Weight Bearing Status: Weight bearing as tolerated Dressing / Incision Call your doctor if you observe: Fever of 101 or Higher, Shortness of breath, Dizziness, Swelling in the ankles and Chest pain Follow Up Care Test Results: Test results from this visit will be discussed in further detail at your follow- up appointment, if applicable. Discharge Plan Admission Admit Date/Time: 05/11/24 16:57 Primary Reason for Your Visit: community acquired pneumonia Attending Provider: Daya Guzman Primary Care Provider: Gaetano Uribe Consulting Providers: Inna Taylor Instructions Patient Instructions: ED Pneumonia (Adult) Discharge Orders/Prescriptions Prescriptions: New levofloxacin 750 mg tablet 750 mg PO DAILY Qty: 7 0RF Referrals / Follow Up: Gaetano Uribe MD [Primary Care Provider] - Within 1 Week NOT,DEFINED [Non-Staff] - Disposition Disposition (needs filled in before D/C Order can be placed): Home, Self Care
--- NOTE | 2024-05-14 13:56 | PCM.DC.SUM ---
Providers Date of Admission: 05/11/24 Date of Discharge: 05/14/24 Primary Care Physician: Dr. Gaetano Uribe MD Reason For Visit: HYPOXIA WITH PNA, TACHYCARDIA Diagnosis Discharge Diagnosis (1) Pneumonia: Status: Acute Code(s): J18.9 - Pneumonia, unspecified organism Plan #Acute hypoxic respiratory failure due to left lower lobe pneumonia\ now feeling much better. On 3L of oxygen by nasal canula Chest imaging showed a left lower lobe consolidation and probable small left pleural effusion. on IV ceftriaxone and azithroycin. Now down to 3L of oxygen by nasal canula breathing treatment with bronchodilators. Titrate oxygen to maintain sats >90% Urine for strep and Legionella negative. Respiratory panel negative and blood cultures pending. #Left lower lobe pneumonia: As above DVT prophylaxis: lovenox Medications at Discharge Home Medications levofloxacin 750 mg tablet 750 mg PO DAILY #7 tabs 05/14/24 Hospital Course Operations None Procedures None Summary of Care Provided Minutes Spent on Discharge: 45 Hospital Course: Patient is a 23-year-old female with no significant past medical history who was admitted through the ED on 05/11/2024 with a complaint of cough, fever and chills for 1 week prior to admission. She has seen her family doctor with prior to admission and was treated for viral-like illness but said his symptoms worsened over 2 to 3 days prior to admission with worsening shortness of breath and worsening fatigue. She went see her PCP on the day of admission and was sent into the ED due to hypoxia. She was saturating at 76% on room air and required up to 6 L of oxygen. Her temperature of 103.2 and she was tachycardic with a heart rate in the 130s. She was also tachypneic. Blood pressure was 107/82. Chest x-ray showed a left lower lobe pneumonia. She was admitted and managed for sepsis and acute hypoxic respiratory failure due to community-acquired pneumonia. She was started on IV ceftriaxone and azithromycin and hydrated with IV fluids. Patient shortness of breath gradually improved and she did feel better. She was weaned gradually off of oxygen. Her fever, tachycardia and tachypnea all resolved. Her cough was also much more improved. Urine for strep and Legionella were negative and blood cultures were also negative. COVID, influenza and RSV screen were negative. She was discharged home on 05/14/2024 after she had walking pulse ox which showed that she did not require any oxygen. She was discharged on a 7-day course of p.o. levofloxacin. She is to follow-up with her primary care doctor within 1 to 2 weeks. Patient was counseled strongly that if her shortness of breath worsen she was to come back to the ED. She was also counseled to take it easy at home and not to overexert herself in order to exacerbate her symptoms. Patient seen and examined prior to discharge. Her was by her bedside. She looks much better and was eager about being discharged home. Review of systems otherwise negative. Labs and vitals reviewed. Home medication reviewed and reconciled. Physical Exam Const alert, oriented x3 and no apparent distress Constitutional Narrative: Patient looks much much better today. General Appearance: cooperative Orientation / Consciousness: awake Exam Limitations: no limitations HEENT normocephalic, head/scalp atraumatic, hearing grossly normal bilaterally and moist oral mucous membranes Mouth: oral and palatal mucosa normal Eyes PERRL and EOMs intact bilaterally Neck no lymphadenopathy and supple Lymph Lymphatic: no lymphadenopathy noted and no lymphedema noted Resp Resp Narrative: Mildly diminished breath sounds bibasilarly. Bronchial breath sounds in left lower lobe have resolved. She has few crackles in left lower lobe. On room air. Cardio regular rate, regular rhythm, S1 normal heart sound, S2 normal heart sound and no murmurs GI normal to inspection, nondistended, normoactive bowel sounds, soft to palpation, non-tender and non-distended Extremity normal to inspection, full ROM, normal capillary refill, no clubbing, cyanosis or edema and no calf tenderness General Extremity: no tenderness to palpation of joints or extremities Skin no rashes or lesions noted Neuro oriented x3, CN's II-XII intact bilaterally, moves all extremities, no focal motor deficits and no sensory deficits noted Sensorium / Orientation: awake and alert Motor Exam: strength 5/5 throughout and general weakness Psych thought process normal, cooperative and affect normal Appearance: appropriate Weight / BMI Weight Weight: 135 lb 5.821 oz Body Mass Index (BMI) 21.2 ABG / Lab / Microbiology Data 05/14/24 04:57 05/14/24 04:57 Laboratory: Laboratory Results - last 24 hr 05/14/24 04:57: WBC 5.5, RBC 3.83 L, Hgb 11.2 L, Hct 34.1 L, MCV 89.0, MCH 29.2, MCHC 32.8, RDW Std Deviation 45.6 H, RDW Coeff of Nabila 14.0, Plt Count 334, MPV 9.9, Immature Gran % (Auto) 2.400 H, Neut % (Auto) 51.3, Lymph % (Auto) 36.0, [place] % (Auto) 7.9, Eos % (Auto) 2.0, Baso % (Auto) 0.4, Absolute Neuts (auto) 2.8, Absolute Lymphs (auto) 1.97, Nucleated RBC % 0, Sodium 141, Potassium 3.8, Chloride 111 H, Carbon Dioxide 25.0, Anion Gap 5, BUN 5 L, Creatinine 0.53 L, Estim Creat Clear Calc 162.75, Est GFR (MDRD) Af Amer 187, Est GFR (MDRD) Non-Af 155, BUN/Creatinine Ratio 9.5 L, Glucose 89, Calcium 8.7 Microbiology: Microbiology 05/11/24 15:18 Blood Culture (Wb) - Anticubital Right Blood Culture - Preliminary No growth in 48 hours. 05/11/24 15:05 Blood Culture (Wb) - Anticubital Right Blood Culture - Preliminary No growth in 48 hours. 05/12/24 02:24 Urine, Random Legionella Antigen - Final 05/12/24 02:24 Urine, Random Streptococcus pneumoniae Antigen (M - Final 05/11/24 22:45 Mucosa - Nasopharyngeal Respiratory Panel (PCR) - Final 05/11/24 15:15 Mucosa - Nose SARS-CoV-2, Influenza & RSV (PCR) - Final D/C Instructions Discharge Diet: No restrictions Discharge Activity: Return to Normal Activity Weight Bearing Status: Weight bearing as tolerated Call your doctor if you observe: Fever of 101 or Higher, Shortness of breath, Dizziness, Swelling in the ankles and Chest pain DC O2, CPAP, BIPAP Needs RN Home O2 Qualification: Home O2 Qualification: Is the patient on home oxygen No 05/14/24 12:17 Home O2 Qualification: AT REST 1- Pulse Ox at rest 94 05/14/24 12:17 Home O2 Qualification: WITH AMBULATION 1- Pulse Ox with ambulation 91 05/14/24 12:17 1- Oxygen Flow Rate with 0 05/14/24 12:17 ambulation Home O2 Discharge instructions: No DC home with Oxygen: No Meaningful Use Info Meaningful Use Meaningful Use Diagnoses (Choose all that apply): None applicable Ischemic Stroke Statin Dosing Therapy Reference: STATIN DOSE THERAPY REFERENCE: * Patients > 75 years receive moderate or high dose statin therapy. * Patients 75 years or YOUNGER should receive HIGH intensity statin dose unless contraindicated. You will be required to document reason for non-treatment if statin daily dose does not meet guidelines. HIGH DOSE STATIN THERAPY DAILY Atorvastatin > than or = to 40 mg Rosuvastatin > than or = to 20 mg Amlodipine + Atorvastatin > than or = to 2.5/40 mg Ezetimibe + Simvastatin 10/80 mg Simvastatin 80mg Discharge Plan Admission Admit Date/Time: 05/11/24 16:57 Primary Reason for Your Visit: community acquired pneumonia Attending Provider: Daya Guzman Primary Care Provider: Gaetano Uribe Consulting Providers: Inna Taylor Instructions Patient Instructions: ED Pneumonia (Adult) Discharge Orders/Prescriptions Prescriptions: New levofloxacin 750 mg tablet 750 mg PO DAILY Qty: 7 0RF Referrals / Follow Up: Gaetano Uribe MD [Primary Care Provider] - Within 1 Week NOT,DEFINED [Non-Staff] - Disposition Disposition (needs filled in before D/C Order can be placed): Home, Self Care Charges/Coding Visit Charges Inpatient E&M: 22073 Disch Hosp >30min
--- NOTE | 2024-05-14 14:54 | CASEMGMT ---
Patient has order for discharge. RN CM in to discuss needs at discharge. Patient does not qualify for home oxygen. Patient denies needs or help at discharge. Patient had no further questions or concerns.
== END 2024-05-14 16:39 | disposition home or self-care (01) | DRG 193 ==
LOC: ED 16:10 → PCU 18:45
PROVIDERS: Nurse Practitioner; Admitting Provider Internal Medicine; Emergency Provider Emergency Medicine; PCP Family Medicine; Referring Provider Internal Medicine; Visit Provider Student in an Organized Health Care Education/Training Program
DX: J18.9 Pneumonia, unspecified organism (principal); J96.01 Acute respiratory failure with hypoxia
CPT/HCPCS: 36415; 71045; 80048; 80053; 83605; 85025; 85610; 85730; 87040; 87449; 87631; 87633; 93005; 94640; 94668; 97802; 99285; A4216; J0696; J2405